=== PATIENT | female | born 1990 | race Two or more races ===

== ENCOUNTER 2022-10-31 08:18 | Observation (INO) | payer MEDICAID, OTHER ==
[~2022-10-31] VITALS: Ht 162.6 cm; Wt 83.5 kg
[2022-10-31] MEDS ORDERED: PREN-96 PO (08:39)
== END 2022-10-31 10:26 | disposition home or self-care (01) ==
LOC: UNDOADMOB 08:18 → LDRP 08:18 → UNDODISOB 10:26
PROVIDERS: ADMIT Obstetrics & Gynecology; ATTEND Obstetrics & Gynecology
DX: O60.03 Preterm labor without delivery, third trimester (principal); Z3A.38 38 weeks gestation of pregnancy
CPT/HCPCS: 59025; 81002; G0378

== ENCOUNTER 2022-11-05 00:18 | Inpatient (IN) | payer MEDICAID ==
[~2022-11-05] VITALS: Ht 162.6 cm; Wt 87.1 kg
[~2022-11-05 00:18] MED LIST: PREN-96 PO
[2022-11-05] MEDS ORDERED: LACTATED RINGER'S 1,000 ML IV SCH ×2 (01:15→02:30)
[2022-11-05] MEDS ORDERED: PROMETHAZINE HCL 25 MG/ML 1ML IM PRN (01:15)
[2022-11-05] MEDS ORDERED: BUTORPHANOL TARTRATE 2 MG/1 ML VIAL IV PRN ×2 (01:15)
[2022-11-05] MEDS ORDERED: OXYTOCIN 10UNIT/ML 1ML VIAL IM ONE (01:23)
[2022-11-05] MEDS ORDERED: ONDANSETRON ODT 4 MG TAB PO PRN (02:30)
[2022-11-05] MEDS ORDERED: DERMOPLAST 60ML BOTTLE TOP PRN (02:30)
[2022-11-05] MEDS ORDERED: PHISODERM TOP SOLN 240ML BTL TOP PRN (02:30)
[2022-11-05] MEDS ORDERED: ACETAMINOPHEN 325 MG TAB PO PRN (02:30)
[2022-11-05] MEDS ORDERED: PENICILLIN G POT 5MIL/D5 50ML 50 ML IV ONE (02:30)
[2022-11-05] MEDS ORDERED: WITCH HAZEL-GLYCERIN PAD TOP PRN (02:30)
[2022-11-05] MEDS ORDERED: METHYLERGONOVINE MALEATE 0.2 MG/ML AMP IM ONE (02:30)
[2022-11-05] MEDS ORDERED: LACT. RINGERS/OXYTOCIN 20UNITS 1,000 ML IV ONE ×2 (02:30→02:36)
[2022-11-05] MEDS: IBUPROFEN 600 MG TAB PO PRN ×3 (02:51→20:36)
[2022-11-05 03:13] LABS: Basophils # (auto) 0 10 ^3/uL (0-0.2); Basophils % (auto) 0.2 % (0.0-2.0); Eosinophils # (auto) 0 10 ^3/uL (0-0.8); Eosinophils % (auto) 0.1 % (0.0-7.0); Hematocrit 40.1 % (36.0-46.0); Lymphocytes # (auto) 1.4 10 ^3/uL (0.4-5.4); Lymphocytes % (auto) 12.2 % (10.0-50.0); Mean Corpuscular Hemoglobin 28.7 pg (28.0-32.0); Mean Corpuscular Hgb Conc. 32.4 g/dL (32.0-36.0); Mean Corpuscular Volume 88.5 fL (80.0-100.0); Monocytes # (auto) 0.4 10 ^3/uL (0-1.3); Monocytes % (auto) 3.7 % (0.0-12.0); Neutrophils # (auto) 9.3 10 ^3/uL (1.6-8.6); Neutrophils % (auto) 83.8 % (37.0-80.0); Red Blood Cells 4.53 10^6/uL (4.0-5.20); Red Cell Distribution Width 14.3 % (11.8-14.3); White Blood Cell 11.1 10^3/uL (4.4-10.8)
[2022-11-05 03:28] LABS: INR 0.9 (0.9-1.15)
[2022-11-05 03:45] LABS: Albumin 2.4 g/dL (3.4-5.0); BUN/Creatinine Ratio 14.9; Bilirubin, Total 0.5 mg/dL (0.2-1.0); Calcium 8.3 mg/dL (8.5-10.1); Potassium 3.9 mmol/L (3.5-5.1); Total Protein 5.5 g/dL (6.4-8.2)
[2022-11-05 03:46] LABS: Amphetamine Screen, Urine NEGATIVE (NEGATIVE); Barbiturate Scree,Urine NEGATIVE (NEGATIVE); Cannabinoid Screen, Urine NEGATIVE (NEGATIVE); Cocaine Screen, Urine NEGATIVE (NEGATIVE); Phencyclidine Screen, Urine NEGATIVE (NEGATIVE)
[2022-11-05 04:14] LABS: Benzodiazephine Screen, Urine NEGATIVE (NEGATIVE); Opiate Scree,Urine NEGATIVE (NEGATIVE)
[2022-11-05 06:45] VITALS: BP 106/63
[2022-11-05 10:39] VITALS: BP 117/77
[2022-11-05 12:13] LABS: Urine Bacteria FEW /hpf (None Seen); Urine Blood 1+ /uL (Negative); Urine Specific Gravity 1.016 (1.001-1.035); Urine WBC 1 /hpf (0 - 5)
[2022-11-05 15:00] VITALS: BP 105/66
[2022-11-05 19:00] VITALS: BP 111/68
[2022-11-05] MEDS ORDERED: DOCUSATE SOD 100 MG CAP PO SCH (22:00)
[2022-11-05 23:00] VITALS: BP 98/58
[2022-11-06 03:00] VITALS: BP 100/62
[2022-11-06 06:40] VITALS: BP 103/66
[2022-11-06 07:07] LABS: RPR Non Reactive (Non Reactive)
[2022-11-06 10:35] VITALS: BP 109/75
== END 2022-11-06 14:53 | disposition home or self-care (01) | DRG 560 ==
LOC: LDRP 00:18 → OBSVTOIN 01:13 → LDRP 04:14
PROVIDERS: ADMIT Obstetrics & Gynecology; ATTEND Obstetrics & Gynecology
PROC: 10E0XZZ Delivery of Products of Conception, External Approach (ICD-10-PCS; principal; 2022-11-05)
DX: O32.8XX0 Maternal care for other malpresentation of fetus, not applicable or unspecified (principal); Z37.0 Single live birth; Z20.822 Contact with and (suspected) exposure to COVID-19; Z3A.39 39 weeks gestation of pregnancy
CPT/HCPCS: 36415; 59409; 80053; 80307; 81001; 85025; 85610; 85730; 86592; 86850; 86900; 86901; 87426; 94760; 96360; 96361; 96365; 96366; G0378; J2590